=== PATIENT | female | born 1990 | race Caucasian/White ===

== ENCOUNTER → 2023-12-23 | Emergency (ER) | payer SELFPAY ==
[~2023-12-23] MED LIST: NA CHLORIDE 0.9% 1,000 ML ONE
--- OUTSIDE RECORDS SUMMARY | 2023-12-23 23:52 | XMS REPORT | Continuity of Care Document ---
Author Name Unknown Address [address] [facility] [address] [place] [address] [facility] thconnect Address [address] [facility]. [address] [place] [address] Care Team Providers Care Accounting Reconciliation Clerk Name Role Phone None, None Primary Care Physician RATNA Borrego Attending Clinician Unavailable Raul Keen Attending Clinician [phone] CORTEZ LAINEZ Attending Clinician SARAH Morton Attending Clinician Amando Santoro MD Attending Clinician [phone] Problems Condition Name Condition Details Condition Category Status Onset Date Resolution Date Last Treatment Date Treating Clinician Comments Source Closed displaced fracture of olecranon process with intraartic ular extension of left ulna Closed displaced fracture of olecranon process with intraartic ular extension of left ulna Disease Active 04-24 00:00: 00 [facility] Allergies, Adverse Reactions, Alerts Allergy Name Allergy Type Status Severity Reaction(s) Onset Date Inactive Date Treating Clinician Comments Source Minocycl ine Allergy to substanc e Active Unknown 2021-11 0- 00:00: 00 [facility] Social History Social Habit Start Date Stop Date Quantity Comments Source Exposure to SARS-CoV-2 (event) 2023-04-15 00:00:00 2023-04-25 09:29:00 Not sure [facility] Tobacco use and exposure 2023-04-06 00:00:00 2023-04-06 00:00:00 Smokeless tobacco non-user [facility] Alcohol intake 2023-04-06 00:00:00 2023-04-06 00:00:00 Ex-drinker (finding) [facility] Sex Assigned At 1990 00:00:00 1990 00:00:00 [facility] Smoking Status Start Date Stop Date Source Tobacco smoking consumption unknown [facility] Never smoked tobacco [facility] Medications Ordered Medication Name Filled Medication Name Start Date Stop Date Current Medication? Ordering Clinician Indication Dosage Frequency Signature (SIG) Comments Components Source acetaminoph en-codeine (Tylenol w/ Codeine #3) 300-30 MG tablet 04-28 00:00: 00 Yes [id number] TAKE 1 TABLET BY MOUTH EVERY 6 HOURS NEEDED FOR SEVERE PAIN FOR UP TO 10 DAYS [facility] methocarbam ol (Robaxin) 750 MG tablet 04-25 00:00: 00 Yes [id number] 750mg Take 1 tablet (750 mg total) by mouth every 12 (twelve) hours if needed for muscle spasms for up to 10 days. [facility] methocarbam ol (Robaxin) 750 MG tablet 04-25 00:00: 00 05-06 04:59 :00 No [id number] 750mg Take 1 tablet (750 mg total) by mouth every 12 (twelve) hours if needed for muscle spasms for up to 10 days. [facility] acetaminoph en-codeine (Tylenol w/ Codeine #3) 300-30 MG tablet 04-12 00:00: 00 Yes [id number] TAKE 1 TABLET BY MOUTH EVERY 6 HOURS NEEDED FOR SEVERE PAIN FOR UP TO 10 DAYS [facility] methocarbam ol (Robaxin) 500 MG tablet 03-28 00:00: 00 Yes [id number] 500mg Q.[id number] 3D Take 1 tablet (500 mg total) by mouth in the morning and 1 tablet (500 mg total) at noon and 1 tablet (500 mg total) in the evening. Do all this for 10 days. [facility] methocarbam ol (Robaxin) 500 MG tablet 03-28 00:00: 00 Yes [id number] 500mg Q.[id number] 3D Take 1 tablet (500 mg total) by mouth in the morning and 1 tablet (500 mg total) at noon and 1 tablet (500 mg total) in the evening. Do all this for 10 days. [facility] gabapentin (Neurontin) 300 MG capsule 03-28 00:00: 00 Yes [id number] 300mg Q.[id number] 3D Take 1 capsule (300 mg total) by mouth in the morning and 1 capsule (300 mg total) at noon and 1 capsule (300 mg total) in the evening. [facility] gabapentin (Neurontin) 300 MG capsule 03-28 00:00: 00 04-28 04:59 :00 No [id number] 300mg Q.[id number] 3D Take 1 capsule (300 mg total) by mouth in the morning and 1 capsule (300 mg total) at noon and 1 capsule (300 mg total) in the evening. [facility] gabapentin (Neurontin) 300 MG capsule 03-28 00:00: 00 04-28 04:59 :00 No [id number] 300mg Q.[id number] 3D Take 1 capsule (300 mg total) by mouth in the morning and 1 capsule (300 mg total) at noon and 1 capsule (300 mg total) in the evening. [facility] acetaminoph en-codeine (TYLENOL/CO DEINE #3) 300-30 MG tablet 03-28 00:00: 00 04-08 04:59 :00 No [id number] 1{tbl} Q6H Take 1 tablet by mouth every 6 (six) hours if needed for severe pain for up to 10 days. [facility] methocarbam ol (Robaxin) 500 MG tablet 03-28 00:00: 00 04-08 04:59 :00 No [id number] 500mg Q.[id number] 3D Take 1 tablet (500 mg total) by mouth in the morning and 1 tablet (500 mg total) at noon and 1 tablet (500 mg total) in the evening. Do all this for 10 days. [facility] acetaminoph en (Tylenol) 500 MG tablet 03-23 12:17: 57 Yes Q6H Take by mouth every 6 (six) hours if needed for mild pain. [facility] acetaminoph en (Tylenol) 500 MG tablet 03-23 12:17: 57 Yes Q6H Take by mouth every 6 (six) hours if needed for mild pain. [facility] acetaminoph en (Tylenol) 500 MG tablet 0 03-23 12:17: 57 Yes Q6H Take by mouth every 6 (six) hours if needed for mild pain. [facility] acetaminoph en (Tylenol) 500 MG tablet 2022-0 03-23 12:17: 57 Yes Q6H Take by mouth every 6 (six) hours if needed for mild pain. [facility] sulfamethox azole-trime thoprim (Bactrim DS) 800-160 MG tablet 03-14 00:00: 00 Yes TAKE 1 TABLET BY MOUTH EVERY 12 HOURS DRINK PLETNY OF FLUIDS [facility] gabapentin (Neurontin) 300 MG capsule 03-14 00:00: 00 Yes 300mg Q8H Take 300 mg by mouth every 8 (eight) hours. [facility] methocarbam ol (Robaxin) 750 MG tablet 03-14 00:00: 00 Yes 750mg Q8H Take 750 mg by mouth every 8 (eight) hours. [facility] sulfamethox azole-trime thoprim (Bactrim DS) 800-160 MG tablet 03-14 00:00: 00 Yes TAKE 1 TABLET BY MOUTH EVERY 12 HOURS DRINK PLETNY OF FLUIDS [facility] gabapentin (Neurontin) 300 MG capsule 03-14 00:00: 00 Yes 300mg Q8H Take 300 mg by mouth every 8 (eight) hours. [facility] methocarbam ol (Robaxin) 750 MG tablet 03-14 00:00: 00 Yes 750mg Q8H Take 750 mg by mouth every 8 (eight) hours. [facility] sulfamethox azole-trime thoprim (Bactrim DS) 800-160 MG tablet 03-14 00:00: 00 Yes TAKE 1 TABLET BY MOUTH EVERY 12 HOURS DRINK PLETNY OF FLUIDS [facility] gabapentin (Neurontin) 300 MG capsule 03-14 00:00: 00 Yes 300mg Q8H Take 300 mg by mouth every 8 (eight) hours. [facility] methocarbam ol (Robaxin) 750 MG tablet 0 03-14 00:00: 00 Yes 750mg Q8H Take 750 mg by mouth every 8 (eight) hours. [facility] sulfamethox azole-trime thoprim (Bactrim DS) 800-160 MG tablet 03-14 00:00: 00 Yes TAKE 1 TABLET BY MOUTH EVERY 12 HOURS DRINK PLETNY OF FLUIDS [facility] gabapentin (Neurontin) 300 MG capsule 03-14 00:00: 00 03-29 04:59 :00 No 300mg Q8H Take 300 mg by mouth every 8 (eight) hours. [facility] methocarbam ol (Robaxin) 750 MG tablet 03-14 00:00: 00 03-29 04:59 :00 No 750mg Q8H Take 750 mg by mouth every 8 (eight) hours. [facility] Encounters Start Date/Time End Date/Time Encounter Type Admission Type Attending Clinicians Care Facility Care Department Encounter ID Source 2023-06-02 16:07:18 Outpatient [facility] [id number] [facility] 2023-05-13 06:23:49 Outpatient [facility] [id number] [facility] 2023-04-26 13:54:08 Outpatient [facility] [id number] [facility] 2023-04-06 12:14:14 Outpatient [facility] [id number] [facility] 2023-03-28 13:49:50 Outpatient [facility] [id number] [facility] 2023-03-23 11:46:14 Outpatient [facility] [id number] [facility] 2023-03-20 08:11:12 Outpatient [facility] [id number] [facility] 2023-03-17 14:07:00 Outpatient [facility] [id number] [facility] 2023-09-05 10:00:00 2023-09-05 10:00:00 Outpatient RATNA COREY [facility] [id number] [facility] 2023-09-05 10:00:00 2023-09-05 10:00:00 Outpatient [facility] [id number] [facility] 2023-06-06 09:45:00 2023-06-06 10:29:58 Office Visit Ratna Corey [facility] [address] [id number] [facility] 2023-06-06 09:45:00 2023-06-06 10:29:58 Outpatient [facility] [id number] [facility] 2023-04-25 09:30:00 2023-04-25 10:10:20 Office Visit Raul Dumont [facility] [id number] [id number] [facility] 2023-04-25 09:30:00 2023-04-25 10:10:20 Outpatient [facility] [id number] [facility] 2023-04-21 13:00:00 2023-04-21 13:00:00 Outpatient CORTEZ LAINEZ [facility] [id number] [facility] 2023-04-11 13:35:00 2023-04-11 13:35:00 Outpatient SARAH FAJARDO [facility] [id number] [facility] 2023-04-06 12:15:00 2023-04-06 12:15:00 Outpatient [facility] [id number] [facility] 2023-03-28 09:45:00 2023-03-28 10:16:54 Office Visit Raul Dumont [facility] [id number] [id number] [facility] 2023-03-28 09:45:00 2023-03-28 10:16:54 Outpatient [facility] [id number] [facility] 2023-03-23 12:00:00 2023-03-23 12:55:51 Office Visit Amando Issa [facility] [id number] [id number] [facility] 2023-03-13 12:00:00 2023-03-13 12:00:00 Outpatient RATNA COREY [facility] [id number] [facility]
[2023-12-24 00:41] LABS: Absolute Lymphocytes (CBC) 3.4 K/uL (0.7-4.9); Hematocrit 46.3 % (36.0-45.0); Lymphocytes % 25.6 % (15.3-44.8); MCV 94.3 fL (80-100); MPV 8.9 fL (7.6-11.3); Platelets 442 thou/uL (152-406); RBC Red Blood Cell Count 4.92 M/uL (3.86-4.86)
[2023-12-24 00:50] LABS: Protime INR 0.89
[2023-12-24 01:09] LABS: ALT/SGPT 37 U/L (13-56); AST/SGOT 22 U/L (15-37); Albumin 3.9 g/dL (3.4-5.0); Alkaline Phosphatase 76 U/L (45-117); BUN Blood Urea Nitrogen 15 mg/dL (7-18); Bicarbonate 26 mEq/L (21-32); Bilirubin Direct 0.1 mg/dL (0-0.2); Bilirubin Indirect, Calculated 0.1 mg/dL (0.2-0.8); Bilirubin Total 0.2 mg/dL (0.2-1.0); Glomerular Filtration Rate 88 ml/min (=/>90); Glucose Level 88 mg/dL (74-106); Potassium 3.9 mEq/L (3.5-5.1); Protein, Total 8.6 g/dL (6.4-8.2); Sodium Level 135 mEq/L (136-145)
[2023-12-24 02:43] LABS: Specific Gravity 1.015 (1.005-1.030); Urine Bacteria <20 /HPF (<20); Urine Bilirubin NEGATIVE (Negative); Urine Blood Negative (Negative); Urine Clarity Extremely Turbid (Clear); Urine Color Light-Yellow (Yellow); Urine Glucose NEGATIVE (Negative); Urine Mucus Slight /HPF (None Seen); Urine Protein NEGATIVE (Negative); Urine RBC <5 /HPF (None Seen); Urine Urobilinogen Normal (Normal); Urine pH 5.5 (5.0-7.0)
[2023-12-24 02:44] LABS: Specific Gravity 1.015 (1.005-1.030)
[2023-12-24 02:48] LABS: Barbiturates NEGATIVE (NEGATIVE); Benzodiazepines NEGATIVE (NEGATIVE); Cocaine NEGATIVE (NEGATIVE); METHAMPHETAM NEGATIVE (NEGATIVE); Methadone NEGATIVE (NEGATIVE); Opiates NEGATIVE (NEGATIVE); Phencyclidine NEGATIVE (NEGATIVE); THC Cannibis NEGATIVE (NEGATIVE)
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
[2023-12-24 10:54] VITALS: BP 116/79; TEMP 98.6; O2SAT 99
--- NOTE | 2023-12-25 15:02 | EKG ---
Test Date: 2023-12-24 Test Time: 00:12:42 Pilot Instructor: ELLY MEASUREMENT RESULTS: Intervals: Rate: 85 FL: 142 QRSD: 72 QT: 366 QTc: 435 [place]: P: 66 FL: 142 QRS: 40 T: 45 INTERPRETIVE STATEMENTS: Normal sinus rhythm Normal ECG No previous ECG available for comparison Electronically Signed On 12-25-23 14:58:41 FOOD SERVICES COORDINATOR by Sree Mendez
== END ==
LOC: ER 23:49
DX: R45.851 Suicidal ideations (principal)
CPT/HCPCS: 36415; 80048; 80076; 80143; 80179; 80307; 81001; 81025; 82077; 85025; 85610; 85730; 93005